=== PATIENT | female | born 1975 | race Caucasian/White ===

== ENCOUNTER 2018-06-26 10:35 | Emergency (ER) | payer MEDICAID, OTHER ==
[2018-06-26] MEDS ORDERED: DiphenhydrAMINE HCL 50 MG/ML VIAL ONE (11:02)
[2018-06-26] MEDS ORDERED: KETOROLAC TROMETHAMINE 30MG/ML ONE (11:02)
== END 2018-06-26 12:50 | disposition home or self-care (01) ==
LOC: EDH 10:35
DX: S30.0XXA Contusion of lower back and pelvis, initial encounter (principal); M19.90 Unspecified osteoarthritis, unspecified site; Z90.710 Acquired absence of both cervix and uterus; Z98.890 Other specified postprocedural states; Z88.1 Allergy status to other antibiotic agents; Z88.8 Allergy status to other drugs, medicaments and biological substances; W18.39XA Other fall on same level, initial encounter; Y93.01 Activity, walking, marching and hiking; Y92.89 Other specified places as the place of occurrence of the external cause; Y99.8 Other external cause status
CPT/HCPCS: 70450; 71250; 72125; 74176; 96374; 96375; 99284; J1200; J1885

== ENCOUNTER 2018-11-25 11:33 | Emergency (ER) | payer MEDICAID, OTHER | END 2018-11-25 12:04 | disposition home or self-care (01) | LOC: EDH 11:33 | DX: G89.29 Other chronic pain (principal); M54.5 Low back pain; M19.90 Unspecified osteoarthritis, unspecified site; Z88.1 Allergy status to other antibiotic agents; Z88.8 Allergy status to other drugs, medicaments and biological substances | CPT/HCPCS: 99281 ==

== ENCOUNTER 2019-02-01 19:25 | Emergency (ER) | payer SELFPAY ==
[2019-02-01] MEDS ORDERED: KETOROLAC TROMETHAMINE 30MG/ML ONE (19:54)
[2019-02-01] MEDS ORDERED: ONDANSETRON HCL 4 MG/2 ML VIAL ONE (19:54)
[2019-02-01] MEDS ORDERED: DiphenhydrAMINE HCL 50 MG/ML VIAL ONE (19:54)
[2019-02-01] MEDS ORDERED: SODIUM CHLORIDE 0.9% 1000ML 1,000 ML IV ONE (19:55)
[2019-02-01 20:05] LABS: APPEARANCE,URINE Clear (CLEAR); BILIRUBIN,URINE Negative (NEGATIVE); COLOR,URINE Yellow (YELLOW); GLUCOSE, URINE (UA) Negative (NEGATIVE); KETONES,URINE Negative (NEGATIVE); LEUKOCYTE ESTERASE ,URINE Negative (NEGATIVE); NITRATE,URINE Negative (NEGATIVE); OCCULT BLOOD,URINE Negative (NEGATIVE); PROTEIN,URINE Negative (NEGATIVE); UROBILINOGEN,URINE 0.2 mg/dL (0.2-1.0)
[2019-02-01 20:10] LABS: HCG,QUAL RESULT NEGATIVE (NEGATIVE)
[2019-02-01] MEDS ORDERED: PROCHLORPERAZINE EDISYLATE 10 MG/2 ML VIAL ONE (21:23)
[2019-02-01] MEDS ORDERED: DEXAMETHASONE SOD PHOSPHATE 10MG/ML 1ML VIAL ONE (21:23)
[2019-02-01 21:30] LABS: AMPHET/METH SCREEN,URINE NEGATIVE (NEGATIVE); BARBITURATE SCREEN, URINE NEGATIVE (NEGATIVE); BENZODIAZEPINES SCREEN,URINE NEGATIVE (NEGATIVE); CANNABINOID SCREEN,URINE NEGATIVE (NEGATIVE); COCAINE SCREEN,URINE POSITIVE (NEGATIVE); OPIATE SCREEN,URINE NEGATIVE (NEGATIVE); PHENCYCLIDINE SCREEN,URINE NEGATIVE (NEGATIVE)
[2019-02-01] MEDS ORDERED: LORAZEPAM 2 MG/ML 1 ML VIAL ONE (21:44)
== END 2019-02-01 22:44 | disposition home or self-care (01) ==
LOC: EDH 19:25
DX: F14.10 Cocaine abuse, uncomplicated (principal); G43.909 Migraine, unspecified, not intractable, without status migrainosus; K59.00 Constipation, unspecified; R11.0 Nausea; R06.02 Shortness of breath; M19.90 Unspecified osteoarthritis, unspecified site; M81.0 Age-related osteoporosis without current pathological fracture; Z88.8 Allergy status to other drugs, medicaments and biological substances; Z90.710 Acquired absence of both cervix and uterus; Z98.890 Other specified postprocedural states
CPT/HCPCS: 70450; 80305; 81003; 81025; 96374; 96375; 99285; J0780; J1100; J1200; J1885; J2060; J2405; J7030